=== PATIENT | female | born 1995 | race African-American/Black ===

== ENCOUNTER 2019-05-15 16:09 | Emergency (ER) | payer BC ==
[~2019-05-15] VITALS: Ht 157.5 cm; Wt 78.6 kg
[2019-05-15] MEDS ORDERED: AUGMENTIN 875 MG TAB PO ONE (17:45)
[2019-05-15 18:14] VITALS: BP 127/77
[2019-05-15] MEDS ORDERED: AUGM875T28 PO (18:14)
== END 2019-05-15 18:20 | disposition home or self-care (01) ==
LOC: M ED 16:09
DX: K62.89 Other specified diseases of anus and rectum (principal)